=== PATIENT | female | born 1985 | race Caucasian/White ===

== ENCOUNTER 2017-04-22 15:23 | Inpatient (IN) | payer OTHER ==
[~2017-04-22] VITALS: Ht 175.3 cm; Wt 111.0 kg
[~2017-04-22 15:23] MED LIST: ASPIR-LOW81 MG PO; DELESTROGE10 MG/1 ML IM; ENDOMETRIN100 MG VAGINAL; PRENATABS RX T1 EACH PO; PROGESTERO50 MG/1 M1 IM; TIROSINT25 MCG PO
--- NOTE | 2017-04-29 09:26 | NUR ---
04/29/17 0926 Ace Ruiz SEE [facility]BC CHARTING FOR PACU VITALS.
--- NOTE | 2017-04-30 11:29 | OR ---
[facility] [address] [place], [place] [address] Signed DATE OF OPERATION: 04/29/2017 SURGEON: Juan Perez MD PREOPERATIVE DIAGNOSIS: macrocephaly, term . POSTOPERATIVE DIAGNOSIS: macrocephaly, term . PROCEDURE: Primary low-transverse segment cesarian section, delivery of live male . ARCHITECTURAL ENGINEER: Dr. You. ANESTHESIA: Spinal. ESTIMATED BLOOD LOSS: 500 mL. COMPLICATIONS: None. DRAINS: Arias to bladder. FINDINGS: Live male , Apgars of 9 and 9, weight 8 pounds and 15 ounces. Normal uterus. Normal tubes and ovaries bilaterally. DESCRIPTION: The patient was brought into the operating room, placed in supine position after adequate spinal anesthesia was obtained, was prepped and draped in usual sterile fashion. Arias catheter was placed in the bladder. A Pfannenstiel skin incision was made with a scalpel and extended through the subcutaneous tissue with scalpel and Bovie. The fascia was nicked with scalpel and extended in a transverse fashion using curved scissors. The underlying abdominal musculature was bluntly and sharply from the fascia above and below the incision. The abdominal musculature was bluntly along the Electronically Signed By: JUAN PEREZ MD 04/30/17 1129 PATIENT NAME: RUFINO PERRIN OPERATIVE REPORT DATE OF : 81 PHYSICIAN: JUAN PEREZ MD REPORT #: [id number] REPORT IS CONFIDENTIAL AND NOT TO BE RELEASED WITHOUT AUTHORIZATION [facility] [address] [place], [place] [address] Signed midline. The peritoneum was grasped with hemostats, elevated, and nicked with curved scissors, and extended in vertical fashion using curved scissors. The Emil self-retaining retractor was then inserted into the incision and tightened in place. Lower uterine segment was identified. The bladder was identified below the proposed area of dissection, so a small dav in midline lower uterine segment was made with scalpel. Finger dissection was used to extend the incision in transverse fashion. Pickups with teeth were used to open the bulging bag with clear fluid. The infant was noted to be in vertex presentation with the head still floating. The head was easily delivered from the incision, and the rest of the infant was then easily delivered from the incision. The mouth and nose were suctioned with bulb syringe. Nuchal cord was doubly clamped and cut. The was passed off the table in good condition to awaiting nurse. Placenta was manually removed and uterine cavity was explored with lap pad to remove any retaining membranes. An angled stitch of #0 Monocryl suture was placed in one end of the incision and 2nd running locking stitch of #0 Monocryl was used to close the incision. A second running stitch of #0 Monocryl was used to imbricate the first layer. The entire pelvis was irrigated, suctioned, and examined. Any superficial bleeding spots were cauterized with a Bovie. When good hemostasis was obtained, the Emil retractor was removed and a sheet of ACell was placed over the lower uterine segment to help with healing. The anterior wall peritoneum was closed using running stitch of 2-0 Vicryl suture. The abdominal musculature was reapproximated using interrupted stitches of #0 Vicryl suture. The abdominal wall incision was irrigated, suctioned, and examined, and any bleeding spots were cauterized with a Bovie. Powdered ACell was sprinkled on the abdominal musculature to help with healing and then the fascia was closed using 2 running stitch of #0 Vicryl suture meeting in the midline. Subcutaneous tissue was irrigated, suctioned, examined, and any bleeding spots were cauterized with a Bovie. Subcutaneous tissue were sprinkled with remaining powdered ACell and then closed using interrupted stitches of 3-0 Vicryl suture. Skin was reapproximated using skin clips. The patient had tolerated the procedure well and went to recovery room in good condition. Sponge, needle, and instrument counts were correct at the end of procedure. Juan Perez MD MJB/MODL /[id number] Electronically Signed By: JUAN PEREZ MD 04/30/17 1129 PATIENT NAME: RUFINO PERRIN OPERATIVE REPORT DATE OF : 81 PHYSICIAN: JUAN PEREZ MD REPORT #: [id number] REPORT IS CONFIDENTIAL AND NOT TO BE RELEASED WITHOUT AUTHORIZATION [address] [place] [address] Signed Electronically Signed By: JUAN PEREZ MD 04/30/17 1129 PATIENT NAME: RUFINO PERRIN OPERATIVE REPORT DATE OF : 81 PHYSICIAN: JUAN PEREZ MD REPORT #: [id number] REPORT IS CONFIDENTIAL AND NOT TO BE RELEASED WITHOUT AUTHORIZATION
--- NOTE | 2017-05-01 11:43 | PR ---
[facility] [address] [facility] [place] [address] Signed PP Progress Notes Datetime Report Generated by CPN: 05/01/2017 11:43 SUBJECTIVE: [id number] Pain: Within normal limits Nausea/Vomiting: Denies Vital Signs: [id number] Vital Signs: Reviewed; Within Normal Limits Notable Details: PP Hgb/Hct = 11.1/31.5 EXAM: [id number] Abdomen/Uterus: Normal Lochia: Normal Extremities: Normal Incision: Normal IMPRESSION/PLAN/PROCEDURES: [id number] Impression: Normal progression Plan: Discharge Procedures: None Progress Notes: Ding well, wants to go home. Signing Physician: Chelsea Davalos MD CC: *Electronically Signed* 05/01/17 1143 CHELSEA DAVALOS MD PATIENT NAME: RUFINO PERRIN PROGRESS NOTE DATE OF : 81 PHYSICIAN: CHELSEA DAVALOS MD RPT #: [id number] REPORT IS CONFIDENTIAL AND NOT TO BE RELEASED WITHOUT AUTHORIZATION
== END 2017-05-01 14:15 | disposition home or self-care (01) | DRG 766 ==
LOC: FBC 04-29 05:26
PROVIDERS: ADMIT General Practice
PROC: 10D00Z1 Extraction of Products of Conception, Low, Open Approach (ICD-10-PCS; principal; 2017-04-29 06:45)
DX: O36.63X0 Maternal care for excessive fetal growth, third trimester, not applicable or unspecified (principal); O35.0XX1 Maternal care for (suspected) central nervous system malformation in fetus, fetus 1; Z3A.39 39 weeks gestation of pregnancy; Z37.0 Single live birth
CPT/HCPCS: 01961; 36415; 85027; C1763; J0690; J1100; J2274; J2370; J2405; J2590; J3010; J7120